=== PATIENT | female | born 1960 | race Caucasian/White ===

== ENCOUNTER 2017-12-10 09:13 | Outpatient (CLI) | payer OTHER | END 2017-12-10 09:17 | disposition home or self-care (01) | LOC: NUCLEAR 09:13 | DX: R07.89 Other chest pain (principal) ==

== ENCOUNTER 2020-12-16 12:30 | Inpatient (IN) | payer OTHER ==
[~2020-12-16] VITALS: Ht 160 cm; Wt 70.8 kg
[2020-12-16] MEDS ORDERED: HYDROCHLOROTHIA25 MG PO (15:21)
[2020-12-16] MEDS ORDERED: CARVEDILOL6.25 MG PO (15:21)
[2020-12-16] MEDS ORDERED: SYNTHROID50 MCG PO (15:21)
[2020-12-16] MEDS ORDERED: LIPITOR20 MG PO (16:47)
== END 2020-12-30 10:21 | disposition home or self-care (01) | DRG 742 ==
LOC: OB/GYN 12-18 07:00 → O/R 12-25 08:51 → OB/GYN 12-25 12:30 → SURH 12-25 16:19
PROVIDERS: ADMIT Specialist; ATTEND Specialist
PROC: 0UT20ZZ Resection of Bilateral Ovaries, Open Approach (ICD-10-PCS; 2020-12-25)
PROC: 0UT70ZZ Resection of Bilateral Fallopian Tubes, Open Approach (ICD-10-PCS; 2020-12-25)
PROC: 0UT90ZZ Resection of Uterus, Open Approach (ICD-10-PCS; principal; 2020-12-25 08:15)
PROC: 30233N1 Transfusion of Nonautologous Red Blood Cells into Peripheral Vein, Percutaneous Approach (ICD-10-PCS; 2020-12-28)
DX: N85.00 Endometrial hyperplasia, unspecified (principal); L76.32 Postprocedural hematoma of skin and subcutaneous tissue following other procedure; D64.9 Anemia, unspecified; D25.1 Intramural leiomyoma of uterus; N94.89 Other specified conditions associated with female genital organs and menstrual cycle; N83.292 Other ovarian cyst, left side; I10 Essential (primary) hypertension; I49.9 Cardiac arrhythmia, unspecified; E78.5 Hyperlipidemia, unspecified; E03.8 Other specified hypothyroidism; Z85.038 Personal history of other malignant neoplasm of large intestine

== ENCOUNTER 2021-01-01 00:21 | Inpatient (IN) | payer OTHER ==
[~2021-01-01] VITALS: Ht 160 cm; Wt 70.8 kg
[~2021-01-01 00:21] MED LIST: CARVEDILOL6.25 MG PO; HYDROCHLOROTHIA25 MG PO; LIPITOR20 MG PO; SYNTHROID50 MCG PO
== END 2021-01-05 11:08 | disposition home or self-care (01) | DRG 389 ==
LOC: ER 00:21 → OB/GYN 07:40 → SEC-K 07:40 → OB/GYN 10:27
PROVIDERS: ADMIT Obstetrics & Gynecology; ATTEND Obstetrics & Gynecology
PROC: BW2110Z Computerized Tomography (CT Scan) of Abdomen and Pelvis using Low Osmolar Contrast, Unenhanced and Enhanced (ICD-10-PCS; principal; 2021-01-01)
DX: K56.0 Paralytic ileus (principal); L76.22 Postprocedural hemorrhage of skin and subcutaneous tissue following other procedure; Z98.891 History of uterine scar from previous surgery; Z20.822 Contact with and (suspected) exposure to COVID-19

== ENCOUNTER → 2021-01-22 15:00 | Outpatient (CLI) | payer OTHER | END | disposition home or self-care (01) | LOC: PPH VACUNA 15:00 | DX: Z23 Encounter for immunization (principal) ==